=== PATIENT | female | born 1955 | race Caucasian/White ===

== ENCOUNTER 2016-08-08 12:22 | Emergency (ER) | payer OTHER ==
[~2016-08-08] VITALS: Ht 157.5 cm; Wt 45.0 kg
[~2016-08-08 12:22] MED LIST: ALBU8I INH; CIPR500T4 PO; FLON0.053; IPRA0.02 INH; IPRAAER IN
[2016-08-08 12:26] VITALS: BP 151/85; PULSE 84; RESP 15; TEMP 98.3; O2SAT 98
[2016-08-08] MEDS ORDERED: IBUP800T23 PO (13:40)
[2016-08-08] MEDS ORDERED: CEPH-460 PO (13:40)
--- NOTE | 2016-08-08 13:41 | PD ---
HPI Chief Complaint: Laceration/Skin Injury Time Seen by Provider: 13:37 Travel History International Travel<30 days: No Contact w/Intl Traveler<30days: No Traveled to known affect area: No History of Present Illness HPI 60-year-old female presents to the emergency Department with complaint of a laceration to her left lower leg that she obtained last night at approximately 6 :30 PM from walking into a branch. She was unable to get a ride to the ER at that time. She is allergic to tetanus toxoid. Denies paresthesias, loss of sensation, decreased range of motion, decreased strength to affected extremity. Has not taken any medications for her symptoms. Has applied pressure and controlled the bleeding. Denies fever, chills, nausea, vomiting. No other modifying factors or associated signs and symptoms. PFSH Past Medical History Asthma: Yes COPD: Yes Diminished Hearing: No Hepatitis: Yes (C) Hypertension: Yes Respiratory: Yes (asthma/copd) Menopausal: Yes Past Surgical History Other Surgery: Yes (tumor from breast COLLAPSED LUNG) Social History Alcohol Use: No Tobacco Use: No Substance Use: No Allergies-Medications (Allergen,Severity, Reaction): Coded Allergies: Tetanus Toxoid (Verified Allergy, Severe, ARMS SWELL UP, 07/05/15) Milk (Verified Allergy, Intermediate, asthma, 07/05/15) Wheat (Verified Allergy, Intermediate, MAKES ASTHMA WORSE, 07/05/15) Codeine (Verified Allergy, Mild, NAUSEA, 07/05/15) Demerol (Verified Allergy, Mild, VOMITTING, 07/05/15) Morphine (Verified Allergy, Mild, N/V, 07/05/15) Reported Meds & Prescriptions Reported Meds & Active Scripts Active Ibuprofen 800 Mg Tab 800 Mg PO Q6HR PRN Keflex (Cephalexin) 500 Mg Cap 500 Mg PO Q6H 7 Days Review of Systems Except as stated in HPI: all other systems reviewed are Neg Physical Exam Narrative GENERAL: Well-nourished, well-developed female patient, in no acute distress SKIN: Warm and dry. Left lower lateral leg with 5.5 cm x 3 cm, L-shaped laceration. The left lower extremity is supple and non-tense with 2+ pedal pulses and sensory intact without erythema or edema. With full range of motion and strength. HEAD: Atraumatic. Normocephalic. EYES: Pupils equal and round. No scleral icterus. No injection or drainage. ENT: Mucosa pink and moist. Airway patent. NECK: Trachea midline. CARDIOVASCULAR: Regular rate. RESPIRATORY: No accessory muscle use. GASTROINTESTINAL: Flat. MUSCULOSKELETAL: No obvious deformities. No clubbing. No cyanosis. No edema. NEUROLOGICAL: Awake and alert. Oriented 3. No obvious cranial nerve deficits. Motor grossly within normal limits. Normal speech. PSYCHIATRIC: Appropriate mood and affect; insight and judgment normal. Data Data Last Documented VS Vital Signs Date Time Temp Pulse Resp B/P Pulse Ox O2 Delivery O2 Flow Rate FiO2 08/08/16 12:26 98.3 84 15 151/85 98 Orders Lidocaine 1% Inj (50 Ml) (Xylocaine 1% I (08/08/16 13:45) [facility] Medical Decision Making Medical Screen Exam Complete: Yes Emergency Medical Condition: Yes Medical Record Reviewed: Yes Differential Diagnosis Laceration, contusion, abrasion Narrative Course 60-year-old female with a L-shaped laceration to her left lateral lower leg. Allergic to tetanus and unable to up-to-date tetanus vaccination. See my procedure note. Keflex and ibuprofen prescribed for home. I offered the patient a set of crutches for support and she declined. Patient is medically cleared and stable for discharge. Discussed reasons to return to the emergency department. Instructed patient to follow up with primary care provider. Patient agrees with treatment plan. The patients vital signs are stable and the patient is stable for outpatient follow-up and treatment. Patient discharged home, stable and in no acute distress. Procedures Procedure Narrative LACERATION LOCATION: Left lower lateral godfrey LENGTH: L-shaped 5.5 cm x 3 cm NUMBER OF STITCHES/KENAN: 14 kenan REPAIR: The area of the laceration was prepped with Betadine and sterilely draped. The laceration was infiltrated with 1% lidocaine. The wound was copiously irrigated and explored without evidence of foreign body, tendon injury or neurovascular injury. The wound was closed using kenan. This was a single layer repair. A sterile dressing was applied. The patient was advised to keep the dressing clean and dry. Patient tolerated the procedure well. Diagnosis Primary Impression: Laceration of left lower leg Qualified Code: S81.812A - Laceration of left lower leg, initial encounter Referrals: Primary Care Physician Patient Instructions: General Instructions, Laceration (ED), Staple Care (ED) Departure Forms: Tests/Procedures, Work Release Enter return to work date: Aug 12, 2016 Additional Instructions: Keep area clean and dry Limit left leg activity to decrease risk of kenan coming undone Ibuprofen or Tylenol as directed and as needed for pain and inflammation Ice pack to area as needed to decrease pain Return to the emergency department or follow-up with primary care provider in 14 days for suture removal Follow up with primary care provider Return to the emergency department immediately with worsening of symptoms, particularly if reddened streaks up or down the affected extremity from the suture site, fever, numbness/tingling in the affected extremity, loss of sensation in the affected extremity, severe swelling of the affected Med/Other Pt SpecificInfo: Prescription(s) given Scripts Ibuprofen 800 Mg [id number] Mg PO Q6HR PRN (PAIN) #30 TAB Ref 0 Prov:Arely Soto 08/08/16 Cephalexin (Keflex)500 Mg [id number] Mg PO Q6H 7 Days Ref 0 Prov:Arely Soto 08/08/16 Disposition: 01 DISCHARGE HOME Condition: Stable Arely Soto Aug 08, 2016 13:40
[2016-08-08] MEDS ORDERED: LIDOCAINE HCL 1% 50 ML VIAL INFIL ONE (13:45)
== END 2016-08-08 15:07 | disposition home or self-care (01) ==
LOC: NEPB 12:22
DX: S81.812A Laceration without foreign body, left lower leg, initial encounter (principal); I10 Essential (primary) hypertension; Z87.09 Personal history of other diseases of the respiratory system; Z86.19 Personal history of other infectious and parasitic diseases; W22.09XA Striking against other stationary object, initial encounter; Y93.01 Activity, walking, marching and hiking
CPT/HCPCS: 12002

== ENCOUNTER → 2017-04-29 | Outpatient (CLI) | payer OTHER ==
[~2017-04-29] MED LIST changes: -ALBU8I INH; +ALBUAER3 INH; +CEPH-460 PO; -CIPR500T4 PO; -FLON0.053; +FLUT1SPR5 EACH NARE; +IBUP800T23 PO; -IPRA0.02 INH; -IPRAAER IN; +SYMB160A INH; +[UNRECOGNIZED DRUG - CODE]
--- NOTE | 2017-04-30 14:18 | RADRPT ---
EXAM DATE/TIME: 04/29/2017 11:06 [facility] COMPARISON : No previous studies available for comparison. INDICATIONS : Consult for hepatic chemo embolization. HISTORY OF PRESENT ILLNESS: Ms. Christopher is a very pleasant 61-year-old female with history of chronic hepatis C. previously treated with interferon and currently undergoing genetic testing for treatment who was diagnosed in January with a 1.6 cm mass in segment 3 of the liver on routine surveillance ultrasound confirmed on followup CT and MRI exams. She reports fatigue but is otherwise without significant complaints. She is here for b iopsy of her mass as well as counseling regarding treatment for possible hepatocellular carcinoma. IMAGING STUDIES: CT and MRI exams from [facility] are reviewed. These demonstrate an enhancing 1.6 x 1.5 cm mass in segment 3 of the liver without evidence for portal vein invasion or extrahepatic metastatic disea se. LFTs performed today demonstrates mild transaminitis with normal bilirubin and albumin levels. ASSESSMENT: 61-year-old female with chronic hepatitis C and newly diagnosed 1.6 cm segment 3 mass, almost certain ly hepatocellular carcinoma. She has a good functional status with intact hepatic function. I will bi opsy this mass today. If diagnosis is confirmed, recommend curative intent microwave ablation with delio hanson tagging chemoembolization to definitively delineate this mass for appropriate margins. Extensive discussion regarding treatment options including surgery and ablation as well as chemoembol ization. All questions were answered. PLAN: CT guided biopsy with tentative plan for chemoembolization and microwave ablation. TIME SPENT: 20 minutes Jonathan Garza MD on April 30, 2017 at 13:31 Board Certified Radiologist. This report was verified electronically.
== END ==
LOC: HRAD 10:48
PROVIDERS: ATTEND Internal Medicine Hematology & Oncology
DX: Z71.89 Other specified counseling (principal)

== ENCOUNTER 2017-04-30 09:17 | Day surgery (SDC) | payer OTHER ==
[2017-04-30] VITALS (9 sets, daily range): BP systolic 122–148; BP diastolic 59–96; PULSE 75–86; RESP 16–20; TEMP 98; O2SAT 95–97
[~2017-04-30] VITALS: Ht 157.5 cm; Wt 42.0 kg
[~2017-04-30 09:17] MED LIST changes: -ALBUAER3 INH; -FLUT1SPR5 EACH NARE; -SYMB160A INH; -[UNRECOGNIZED DRUG - CODE]
[2017-04-30] MEDS ORDERED: GELATIN 12 MM/7 MM FOAM ONE (09:18)
[2017-04-30] MEDS ORDERED: ALBUAER3 INH (10:11)
[2017-04-30] MEDS ORDERED: [UNRECOGNIZED DRUG - CODE] (10:11)
[2017-04-30] MEDS ORDERED: FLUT1SPR5 EACH NARE (10:11)
[2017-04-30] MEDS ORDERED: SYMB160A INH (10:11)
[2017-04-30] MEDS ORDERED: SODIUM CHLOR 0.9% 1000 ML IV SCH (10:30)
[2017-04-30 10:37] LABS: BASOPHIL % 0.8 % (0.0-2.0); EOSINOPHIL % 0.9 % (0.0-4.0); HEMATOCRIT 45.3 % (35.0-46.0); HEMO FLAGS DIFF FINAL; LYMPHOCYTE # 1.2 TH/MM3 (1.0-4.8); MEAN CELL VOLUME 94.1 FL (80.0-100.0); MEAN CORPUSCULAR HEMOGLOBIN 31.5 PG (27.0-34.0); MEAN CORPUSCULAR HGB CONC 33.4 % (32.0-36.0); MONO % 9.9 % (0.0-8.0); NEUT % 63.4 % (16.0-70.0); PLATELET COUNT 180 TH/MM3 (150-450); RED BLOOD COUNT 4.82 MIL/MM3 (4.00-5.30); RED CELL DISTRIBUTION WIDTH 12.6 % (11.6-17.2); WHITE BLOOD COUNT 4.8 TH/MM3 (4.0-11.0)
[2017-04-30 10:47] LABS: APTT (PATIENT) 28.4 SEC (24.3-30.1); PROTHROMBIN TIME - PATIENT 10.5 SEC (9.8-11.6)
[2017-04-30] MEDS ORDERED: LIDOCAINE HCL 1% 20 ML VIAL ONE (11:43)
[2017-04-30 11:52] LABS: ALT (GPT) 118 U/L (10-53); ANION GAP 5 MEQ/L (5-15); AST (GOT) 74 U/L (15-37); BICARBONATE 27.4 MEQ/L (21.0-32.0); BLOOD UREA NITROGEN 16 MG/DL (7-18); CHLORIDE 106 MEQ/L (98-107); GLOMERULAR FILTRATION RATE 98 ML/MIN (>89); POTASSIUM 4.5 MEQ/L (3.5-5.1); SODIUM (NA) 138 MEQ/L (136-145)
[2017-04-30 11:54] LABS: ALKALINE PHOSPHATASE 121 U/L (45-117); TOTAL BILIRUBIN ADULT 0.5 MG/DL (0.2-1.0)
--- NOTE | 2017-04-30 12:39 | PD.RAD ---
Post CT Procedure Prog Note Pre Procedure Diagnosis: (1) Chronic hepatitis C Post Procedure Diagnosis: (1) Liver mass, left lobe (2) Chronic hepatitis C Procedure Date: Apr 30, 2017 Supervising Radiologist: Jonathan Garza Anesthesia: Local Plan of Activity Patient to Unit: ROPU Patient Condition: Good Additional Comments: Three 18g cores of mass in seg 3 See PACS Report for procedural detail/treatment Jonathan Garza MD Apr 30, 2017 12:38
== END 2017-04-30 16:15 | disposition home or self-care (01) ==
LOC: HRIP 09:17 → HRAD 09:17
PROVIDERS: ATTEND Internal Medicine Hematology & Oncology
DX: C22.0 Liver cell carcinoma (principal); B18.2 Chronic viral hepatitis C; B19.10 Unspecified viral hepatitis B without hepatic coma; I10 Essential (primary) hypertension; J44.9 Chronic obstructive pulmonary disease, unspecified; E03.9 Hypothyroidism, unspecified; Z01.818 Encounter for other preprocedural examination; A69.20 Lyme disease, unspecified
CPT/HCPCS: 47000; 77012; 80053; 85025; 85610; 85730; 88307; J7030

== ENCOUNTER 2017-05-28 09:19 | Observation (INO) | payer OTHER ==
[2017-05-28] VITALS (7 sets, daily range): BP systolic 136–171; BP diastolic 59–89; PULSE 69–85; RESP 18–20; TEMP 97.8–99.1; O2SAT 94–97
[~2017-05-28] VITALS: Ht 157.5 cm; Wt 42.0 kg
[2017-05-28] MEDS: PANTOPRAZOLE SOD 20 MG DELAYED RELEASE TAB PO SCH (09:00)
[~2017-05-28 09:19] MED LIST changes: +ALBUAER3 INH; -CEPH-460 PO; +CLON.1 PO; +FLUT1SPR5 EACH NARE; -IBUP800T23 PO; +OMEP20TA93 PO; +SYMB160A INH; +ZOFR4TAB PO; +[UNRECOGNIZED DRUG - CODE]
[2017-05-28] MEDS ORDERED: POVIDONE IODINE 5% (ANTISEPSIS KIT) 4 APPLICATIONS EACH NARE PRN (10:00)
[2017-05-28] MEDS ORDERED: POVIDONE IODINE 5% (ANTISEPSIS KIT) 4 APPLICATIONS EACH NARE SCH (10:00)
[2017-05-28] MEDS ORDERED: LACTATED RINGER'S 1000 ML IV PRN (10:00)
[2017-05-28] MEDS ORDERED: METOPROLOL TARTRATE 25 MG TAB PO PRN (10:00)
[2017-05-28] MEDS ORDERED: INSULIN HUMAN REGULAR 1,000 UNITS/10 ML VIAL SQ PRN (10:00)
[2017-05-28] MEDS ORDERED: CHLORHEXIDINE GLUCONATE 2 % 1 PACK (2 CLOTHS) TOPICAL PRN (10:00)
[2017-05-28] MEDS ORDERED: ceFAZolin 2 GM PREMIX 50 ML IV SCH (10:00)
[2017-05-28] MEDS: SODIUM CHLORID 0.9% 500 ML IV PRN ×2 (10:00→15:26)
[2017-05-28] MEDS: SODIUM CHLORIDE 0.9% 1000 ML IV SCH (10:00)
[2017-05-28] MEDS ORDERED: SUGAMMADEX SODIUM 200 MG/2 ML VIAL IV PUSH ONE ×2 (11:21)
[2017-05-28] MEDS ORDERED: LIDOCAINE HCL 1% PF 5 ML AMPULE OTHER ONE (12:00)
[2017-05-28] MEDS ORDERED: ONDANSETRON HCL 4 MG/2 ML VIAL IV PUSH ONE (12:00)
[2017-05-28] MEDS ORDERED: ePHEDrine/NS 25 MG/5 ML SYR IV ONE (12:00)
[2017-05-28] MEDS ORDERED: PROPOFOL 200 MG/20 ML AMP IV ONE (12:00)
[2017-05-28] MEDS ORDERED: ROCURONIUM INJ 50 MG/5 ML SYRINGE IV PUSH ONE (12:00)
[2017-05-28] MEDS ORDERED: DEXAMETHASONE SOD PHOS 4 MG/ML VIAL IV ONE (12:00)
[2017-05-28] MEDS ORDERED: LIDOCAINE 1%/EPINEPHrine 1:100,000 SOLN 20 ML VIAL ONE (12:03)
--- NOTE | 2017-05-28 12:48 | EKG ---
Date Performed: 05/28/2017 Time Performed: 10:09:42 PTAGE: 61 years EKG: Sinus rhythm ABNORMAL ECG PREVIOUS TRACING : 04/30/1999 07.57 DOCTOR: Beni Sadler Interpretating Date/Time 05/28/2017 12:46:13
--- NOTE | 2017-05-28 13:27 | PD.RAD ---
Post CT Procedure Prog Note Pre Procedure Diagnosis: (1) Chronic hepatitis C (2) Liver mass, left lobe Post Procedure Diagnosis: (1) Liver mass, left lobe (2) Chronic hepatitis C Procedure Date: May 28, 2017 Supervising Radiologist: Jonathan Garza Anesthesia: Analgesia Plan of Activity Patient to Unit: PACU Patient Condition: Good See PACS Report for procedural detail/treatment Jonathan Garza MD May 28, 2017 13:27
[2017-05-28] MEDS ORDERED: HYDROmorphone HCL 2 MG TAB PO PRN (13:30)
[2017-05-28] MEDS ORDERED: ONDANSETRON HCL 4 MG/2 ML VIAL IV PUSH PRN (13:30)
--- NOTE | 2017-05-28 14:18 | RADRPT ---
EXAM DATE/TIME: 05/28/2017 12:34 [facility] COMPARISON: No previous studies available for comparison. INDICATIONS : 7-year-old female history of chronic hepatitis C cirrhosis and 2 cm mass in segment 3 of the greg er biopsy-proven HCC. Patient status post RANDA lipiodol embolization and now presents for thermal ablation. Anesthesia and pain control was provided by the Anesthesia department. DEVICE(S): 1.) Emprint 15 cm MEDICAL HISTORY : Carcinoma, hepatocellular. Chronic obstructive pulmonary disease. Hepatitis C. SURGICAL HISTORY : Tubal ENCOUNTER: Initial ACUITY: 1 day PAIN SCORE: 0/10 LOCATION: Liver PROCEDURE : CT guided Mack ablation of a Mass in segment 3 of the liver. The risks, benefits and alternatives to the procedure were explained and verbal and written consent w as obtained. Using automated exposure control and adjustment of the mA and/or kV according to patien t size, radiation dose was kept as low as reasonably achievable to obtain optimal diagnostic quality images. The site was prepped in sterile fashion. Full sterile technique was used, including cap, ma sk, sterile gloves and gown and a large sterile sheet. Hand hygiene and 2% chlorhexidine and/or beta dine/alcohol prep was utilized per protocol for cutaneous antisepsis. The skin and subcutaneous tiss ues were infiltrated with local anesthetic solution. DICOM format image data is available electronic ally for review and comparison. CT examination was performed. This confirms the bilateral retention in the segment 3 mass. Skin overl aubree the mass was prepped and draped in usual sterile fashion. 15 cm Emprint adequate probe was then inserted into the lesion under careful CT guidance. Mass was subsequently ablated as 100 W for 5 mag dee with imaging obtained at 2 and 5 minutes. It was then positioned slightly more medially and infer iorly and mass was subsequently ablated for 3 additional minutes. Tract was then ablated and there wa s withdrawn. Post procedural CT exam demonstrated no evidence of hematoma or other complication. CONCLUSION: 1. Technically successful CT guided microwave ablation of 2 cm mass in segment 3 of the liver. Plan: Patient will be admitted for overnight observation and management. Followup CT examination in a pproximately 8 weeks. Jonathan Garza MD on May 28, 2017 at 14:05 Board Certified Radiologist. This report was verified electronically.
[2017-05-28] MEDS ORDERED: DO NOT ADM ANY ANTICOAGULANT DRUGS PRN (14:30)
[2017-05-28] MEDS ORDERED: ALBUTEROL SULFATE 90 MCG/ACT HFA 8 GM INHALER INH PRN (16:15)
[2017-05-28] MEDS ORDERED: KETOROLAC TROMETHAMINE 30 MG/ML (IVP) VIAL IV PUSH SCH (18:00)
[2017-05-28] MEDS: BUDESONIDE-FORMOTEROL 160/4.5 MCG INHALER INH SCH (21:34)
[2017-05-28] MEDS: FLUTICASONE PROPIONATE 50 MCG/ACT 16 GM NASAL SPRAY NASAL SCH (21:35)
[2017-05-29] VITALS: BP 98/69; PULSE 69; RESP 18; TEMP 98.8; O2SAT 95
[2017-05-29 04:00] VITALS: BP 148/82; PULSE 69; RESP 20; TEMP 98.7; O2SAT 96
[2017-05-29 08:00] VITALS: BP 155/81; PULSE 80; RESP 20; TEMP 98.7; O2SAT 93
[2017-05-29] MEDS: BUDESONIDE-FORMOTEROL 160/4.5 MCG INHALER INH SCH (09:00)
[2017-05-29] MEDS: PANTOPRAZOLE SOD 20 MG DELAYED RELEASE TAB PO SCH (09:00)
[2017-05-29] MEDS: FLUTICASONE PROPIONATE 50 MCG/ACT 16 GM NASAL SPRAY NASAL SCH (09:00)
--- NOTE | 2017-05-29 09:16 | MH ---
cc: BALDEV WILHELM MD DATE OF ADMISSION 05/28/2017 REASON FOR ADMISSION Status post chemoembolization of the hepatocellular carcinoma yesterday. HISTORY OF PRESENT ILLNESS This is a 61-year-old female with a past medical-surgical history significant for hepatitis C, Lyme disease, ADHD, asthma, COPD, depression, hypertension, hypothyroidism, osteoarthritis. She has been diagnosed with liver cancer and underwent chemoembolization recently on May 22 and had another chemoembolization done yesterday. The patient developed nausea and vomiting on the last admission and this admission she has no nausea or vomiting, diarrhea or abdominal pain and she denies any fever, chills, cough or any other symptoms and she was admitted for observation overnight after the chemoembolization. She is doing okay and she wants to go home and it is okay to discharge the patient home. PAST MEDICAL-SURGICAL HISTORY As dictated above. SOCIAL HISTORY Denies any smoking, ex-smoker. Social drinking. Lives at home . FAMILY HISTORY Significant for asthma and cancer runs in the family. ALLERGIES TETANUS VACCINE, CODEINE, DOXYCYCLINE, MEPERIDINE, MILK, MORPHINE, WHEAT, ADSORBED. REVIEW OF SYSTEMS All review of systems are negative at the time of examination except feeling weak and tired and . MEDICATIONS Include: 1. Claritin 10 mg daily 2. Flonase 2 sprays nostril daily 3. ProAir two puff inhalation every 4-6 hours p.r.n. cough, shortness of breath, wheezing. 4. Symbicort 160/4.52, one puffs inhalation twice a day. REVIEW OF SYSTEMS Positive for feeling weak and tired and cachexia. PHYSICAL EXAM VITAL SIGNS: Temperature 98.7, heart rate 69, respirations 20, blood pressure 148/82, O2 saturation 96% on room air. HEENT: Normocephalic, atraumatic. EOMI. PERRL. Oral mucosa moist. NECK: Supple. No visible thyromegaly or neck mass. Trachea central. CARDIOVASCULAR: Regular rate and rhythm. LUNGS: Respirations clear to auscultation bilaterally. ABDOMEN: Soft, mild tenderness in the right upper quadrant area. No guarding or rigidity. Bowel sounds positive in all four quadrants. EXTREMITIES: No cyanosis or clubbing. Full range of motion of all extremities. NEUROLOGIC: Awake, alert, and oriented x4. No focal deficits. SKIN: Warm and dry. PSYCH: The patient is cooperative, mood and affect is normal. Generalized cachexic patient. LABORATORY DATA None ASSESSMENT/PLAN This is 61-year-old cachexic female recently diagnosed with liver cancer status post chemoembolization x2. The patient feels better after chemoembolization. No acute issues and wants to go home. Okay to discharge the patient home. The patient advised to follow up with me three to four days. Baldev Wilhelm MD EA/STU /8:53 AM /9:00 AM
[2017-05-29] MEDS: SODIUM CHLORIDE 0.9% 1000 ML IV SCH (09:41)
== END 2017-05-29 11:08 | disposition home or self-care (01) ==
LOC: HSDC 09:19 → HRIP 09:20 → HSDC 15:11 → N03A 15:18
PROVIDERS: ADMIT Family Medicine; ATTEND Internal Medicine Hematology & Oncology
DX: C22.7 Other specified carcinomas of liver (principal); R64 Cachexia; R11.2 Nausea with vomiting, unspecified; I10 Essential (primary) hypertension; J44.9 Chronic obstructive pulmonary disease, unspecified; J45.909 Unspecified asthma, uncomplicated; E03.9 Hypothyroidism, unspecified; R94.31 Abnormal electrocardiogram [ECG] [EKG]; B18.2 Chronic viral hepatitis C; K74.69 Other cirrhosis of liver; F90.9 Attention-deficit hyperactivity disorder, unspecified type; F32.9 Major depressive disorder, single episode, unspecified; M19.90 Unspecified osteoarthritis, unspecified site; Z87.891 Personal history of nicotine dependence
CPT/HCPCS: 47382; 77013; 93005; G0378; J1100; J2405; J3010; J7040

== ENCOUNTER 2017-06-05 14:33 | Day surgery (SDC) | payer OTHER ==
[~2017-06-05 14:33] MED LIST changes: -CLON.1 PO
[2017-06-05 14:47] VITALS: BP 162/103; PULSE 80; RESP 20; TEMP 97.3; O2SAT 98
== END 2017-06-05 15:30 | disposition home or self-care (01) ==
LOC: HROP 14:33 → HRIP 14:34 → HROP 15:30
PROVIDERS: ATTEND Radiology Diagnostic Radiology
DX: Z48.01 Encounter for change or removal of surgical wound dressing (principal)